=== PATIENT | male | born 1980 | race Caucasian/White ===

== ENCOUNTER 2020-08-04 17:37 | Emergency (ER) | payer OTHER ==
[~2020-08-04] VITALS: Ht 177.8 cm; Wt 78.6 kg
--- NOTE | 2020-08-04 18:10 | PHYS DOC ---
Past History Past Medical History: No Pertinent History Alcohol Use: None General Adult EDM: Chief Complaint: TESTICULAR PAIN OR INJURY HPI: HPI: ".. I started having some discomfort .. in my Lt. testicle .. started two days ago... 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 testicle pain. Pt. denies any specific trauma. No history of penile discharge. No history of STDs. No history of STD concerns. No history of recent travel. No history of severe ill contacts. Patient normally healthy. Patient did receive a Vasectomy in April. Patient normally follows with L[facility]. Review of Systems: Review of Systems: Constitutional: Denies fever or chills Eyes: Denies change in visual acuity HENT: Denies nasal congestion or sore throat Respiratory: Denies cough or shortness of breath Cardiovascular: Denies chest pain or edema GI: Denies abdominal pain, nausea, vomiting, bloody stools or diarrhea : Complains of left testicular pain Musculoskeletal: Denies back pain or joint pain Integument: Denies rash Neurologic: Denies headache, focal weakness or sensory changes Endocrine: Denies polyuria or polydipsia Lymphatic: Denies swollen glands Psychiatric: Denies depression or anxiety Family History: Family History: Noncontributory to presentation Current Medications: Current Meds: See nursing for home meds Allergies: Allergies: Allergies Coded Allergies Type Severity Reaction Last Updated Verified No Known Drug Allergies 08/04/20 No Physical Exam: PE: Constitutional: Well developed, well nourished, moderate acute distress, non- toxic appearance. [] HENT: Normocephalic, atraumatic, bilateral external ears normal, oropharynx moist, no oral exudates, nose normal. [] Eyes: PERRLA, EOMI, conjunctiva normal, no discharge. [] Neck: Normal range of motion, no tenderness, supple, no stridor. [] Cardiovascular:Heart rate regular rhythm, no murmur [] Lungs & Thorax: Bilateral breath sounds clear to auscultation [] Abdomen: Bowel sounds normal, soft, no tenderness, no masses, no pulsatile masses. [] Circumcised male. Tenderness of left epididymis. No hernia. No penile discharge. No adenopathy. Skin: Warm, dry, no erythema, no rash. [] Back: No tenderness, no CVA tenderness. [] Extremities: No tenderness, no cyanosis, no clubbing, ROM intact, no edema. [] Neurologic: Alert and oriented X 3, normal motor function, normal sensory function, no focal deficits noted. [] Psychologic: Affect normal, judgement normal, mood normal. [] Current Patient Data: Vital Signs: Vital Signs Date Time Temp Pulse Resp B/P (MAP) Pulse Ox O2 Delivery O2 Flow Rate FiO2 08/04/20 17:51 98.1 51 16 131/92 (105) 97 Room Air EKG: EKG: [] Radiology/Procedures: Radiology/Procedures: [][address] [address] IMAGING REPORT Signed PATIENT: PALOMO RAMÍREZ ACCOUNT: [id number] : 1980 LOCATION: ER AGE: 39 SEX: M EXAM STATUS: REG ER ORD. PHYSICIAN: JOSH CAICEDO MD REASON: pain PROCEDURE: TESTICULAR/SCROTUM US TESTICULAR History: Left testicular pain. Realtime ultrasonography of the scrotum was performed. Comparison: None. Tail of the left epididymis is mildly enlarged and hyperemic. Additionally, there is a round solid isoechoic structure in the tail of the left epididymis measuring 0.5 x 0.4 x 0.4 cm. Normal right epididymis. The bilateral testicles demonstrate homogeneous parenchyma without evidence of mass, cyst, calcification, or increased Doppler flow. The right testicle measures 5.0 x 3.1 x 2.7 cm. The left testicle measures 4.7 x 3.0 x 2.2 cm. Small left hydrocele. Impression: 1. Mild enlargement and hyperemia of the tail of the left epididymis, which may represent epididymitis. Small left hydrocele. 2. Solid lesion measuring 0.5 cm in the tail of the left epididymis. This probably represents a benign lesion such as an adenomatoid tumor. Urology referral is recommended for further management. Electronically signed by: Micheal Garcia MD (08/04/2020 7:58 PM) [facility] DICTATED AND SIGNED BY: MICHEAL GARCIA MD DATE: 08/04/201950 CC: ALBERTO LOPEZ; JOSH CAICEDO MD ~MTH0 0 Heart Score: C/O Chest Pain: N/A Risk Factors: Risk Factors: DM, Current or recent (<one month) smoker, HTN, HLP, family history of CAD, obesity. Risk Scores: Score 0 - 3: 2.5% MACE over next 6 weeks - Discharge Home Score 4 - 6: 20.3% MACE over next 6 weeks - Admit for Clinical Observation Score 7 - 10: 72.7% MACE over next 6 weeks - Early Invasive Strategies Course & Med Decision Making: Course & Med Decision Making Pertinent Labs and Imaging studies reviewed. (See chart for details) Patient take Cipro 500 mg twice a day. Follow-up with primary care. Follow-up with urology. Have primary review ED record. Follow-up left testicular epididymiti nodule. Impression: 1. Epididymitis is 2.. Nodule Lt. epididymiti 0.5 cm [] Dragon Disclaimer: Dragon Disclaimer: This electronic medical record was generated, in whole or in part, using a voice recognition dictation system. Departure Departure: Referrals: ALBERTO LOPEZ (PCP) Scripts Ciprofloxacin (CIPRO) 500 Mg/5 Ml [facility]..rec 500 MG PO BID for Epididmyitis for 10 Days, [facility] Prov: JOSH CAICEDO MD 08/04/20 Nell Disclaimer This chart was dictated in whole or in part using Voice Recognition software in a busy, high-work load, and often noisy Emergency Department environment. It may contain unintended and wholly unrecognized errors or omissions. JOSH CAICEDO MD Aug 04, 2020 18:10
[2020-08-04 19:55] LABS: BILIRUBIN,URINE NEG (NEG); CLARITY,URINE CLEAR; COLOR,URINE YELLOW; GLUCOSE,URINE NEG (NEG); NITRITE,URINE NEG (NEG); UROBILINOGEN,URINE 0.2 mg/dL (0.2 mg/dL)
[2020-08-04 19:56] LABS: BACTERIA,URINE 0 /HPF (0-FEW); RBC,URINE 0 /HPF (0-2); SQUAMOUS EPITHELIAL CELL,UR OCC /LPF; WBC,URINE 0 /HPF (0-4)
--- NOTE | 2020-08-04 20:00 | RAD ---
US TESTICULAR History: Left testicular pain. Realtime ultrasonography of the scrotum was performed. Comparison: None. Tail of the left epididymis is mildly enlarged and hyperemic. Additionally, there is a round solid is oechoic structure in the tail of the left epididymis measuring 0.5 x 0.4 x 0.4 cm. Normal right epidi dymis. The bilateral testicles demonstrate homogeneous parenchyma without evidence of mass, cyst, calcificat ion, or increased Doppler flow. The right testicle measures 5.0 x 3.1 x 2.7 cm. The left testicle viktor sures 4.7 x 3.0 x 2.2 cm. Small left hydrocele. Impression: 1. Mild enlargement and hyperemia of the tail of the left epididymis, which may represent epididymiti s. Small left hydrocele. 2. Solid lesion measuring 0.5 cm in the tail of the left epididymis. This probably represents a benig n lesion such as an adenomatoid tumor. Urology referral is recommended for further management. Electronically signed by: Dilip Garcia MD (08/04/2020 7:58 PM) [facility]
[2020-08-04] MEDS ORDERED: CIPR500S2 PO (20:10)
[2020-08-04] MEDS: CIPROFLOXACIN HCL 500 MG TABLET PO ONE (20:19)
[2020-08-04] MEDS: IBUPROFEN 600 MG TABLET. PO ONE (20:20)
[2020-08-04 20:21] VITALS: BP 125/78
== END 2020-08-04 20:21 | disposition home or self-care (01) ==
LOC: ER 17:37
DX: N45.1 Epididymitis (principal)
CPT/HCPCS: 76870; 81001; 99284-25